=== PATIENT | female | born 1995 | race American Indian/Alaskan Native ===

== ENCOUNTER 2016-10-28 16:08 | Emergency (ER) | payer OTHER ==
[2016-10-28 16:54] LABS: Basophils % (Auto) 0.3 % (0.0-1.8); Hematocrit 42.4 % (30.3-42.9); Hemoglobin 13.7 gm/dl (10.1-14.3); Mean Corpuscular HGB Conc 32 % (30-34); Mean Corpuscular Hemoglobin 28 pg (28-32); Mean Corpuscular Volume 85 fl (79-97); Platelet Count 236 K/mm3 (140-440); Red Blood Count 4.98 M/mm3 (3.65-5.03); Red Cell Distribution Width 12.5 % (13.2-15.2); White Blood Count 7.6 K/mm3 (4.5-11.0)
[2016-10-28 17:02] LABS: Bacteria,Urine 1+ /HPF (Negative); Bilirubin,Urine NEG (Negative); Blood,Urine NEG (Negative); Ketones,Urine 80 mg/dL (Negative); Leukocyte Esterase,Urine NEG (Negative); Mucus,Urine 3+ /HPF; Nitrite,Urine NEG (Negative); Urobilinogen,Urine < 2.0 mg/dL (<2.0)
[2016-10-28 17:06] LABS: Anion Gap 25 mmol/L; BUN/Creatinine Ratio 17.14; Blood Urea Nitrogen 12 mg/dL (7-17); Calcium 9.1 mg/dL (8.4-10.2); Carbon Dioxide 19 mmol/L (22-30); Chloride 99.5 mmol/L (98-107); Glucose 106 mg/dL (65-100); Potassium 3.8 mmol/L (3.6-5.0); Sodium 140 mmol/L (137-145)
[2016-10-28] MEDS ORDERED: ZOFRAN ODT ONE (20:03)
[2016-10-28] MEDS ORDERED: ZOFRAN ODT PO ONE (20:08)
[2016-10-29 00:24] LABS: Urine Drugs of Abuse Note Disclamer
[2016-10-29 01:20] LABS: Albumin 4.7 g/dL (3.9-5); Albumin/Globulin Ratio 1.6 %; Bilirubin,Direct 0.4 mg/dL (0-0.2); Bilirubin,Total 2.4 mg/dL (0.1-1.2); Total Protein 7.6 g/dL (6.3-8.2)
[2016-10-29] MEDS ORDERED: D5NS 1,000 ML IV SCH (02:00)
--- NOTE | 2016-10-29 02:25 | Emergency Department Report ---
ED N/V/D HPI - General Chief complaint: Nausea/Vomiting/Diarrhea Stated complaint: PASSED OUT,VOMITING Time Seen by Provider: 10/29/16 00:19 Source: patient Mode of arrival: Ambulatory Limitations: No Limitations - History of Present Illness Initial comments: 21-year-old female with a past medical history presents to Hospital complaints of nausea, vomiting, and diarrhea. Patient states she ate seafood and steak at a restaurant last night. At 4:30 this morning she developed nausea, vomiting and by mouth intolerance to multiple episodes of diarrhea. Patient had a syncopal episode after multiple episodes of vomiting and diarrhea. Patient presented to the ER hyperventilating with paresthesias to bilateral hands. - Related Data Previous Rx's Medication Instructions Recorded Last Taken Type Loperamide [Imodium] 2 mg PO Q2HR PRN #20 capsule 10/29/16 Unknown Rx Ondansetron [Zofran Odt] 4 mg PO Q8HR PRN #30 tab.rapdis 10/29/16 Unknown Rx Allergies Allergy/AdvReac Type Severity Reaction Status Date / Time No Known Allergies Allergy Unverified 10/28/16 16:09 ED Review of Systems ROS: Stated complaint: PASSED OUT,VOMITING Other details as noted in HPI Comment: All other systems reviewed and negative Other: Constitutional: No fevers chills Eyes: No eye pain visual changes ENT: No ear pain or throat pain Neck: Denies pain Respiratory: Denies cough wheezing shortness of breath Cardiovascular: Denies chest pain, palpitations GI: as per hpi : Denies dysuria, urinary frequency, or urgency Musculoskeletal: Denies back pain, joint swelling Skin: Denies rash, lesions, erythema Neurologic: Denies headache, numbness, weakness Psychiatric: Denies suicidal ideation, hallucinations ED Past Medical Hx - Past Medical History Previous Medical History?: No - Surgical History Past Surgical History?: No - Social History Smoking Status: Current Some Day Smoker Substance Use Type: Alcohol - Medications Home Medications: Home Medications Medication Instructions Recorded Confirmed Last Taken Type Loperamide [Imodium] 2 mg PO Q2HR PRN #20 capsule 10/29/16 Unknown Rx Ondansetron [Zofran Odt] 4 mg PO Q8HR PRN #30 tab.rapdis 10/29/16 Unknown Rx ED Physical Exam - General Limitations: No Limitations - Other Other exam information: General: No limitations, patient is alert in no acute distress Head exam: Atraumatic, normocephalic Eyes exam: Normal appearance, pupils equal reactive to light, extraocular movements intact ENT: Moist mucous membrane, normal oropharynx Neck exam: Normal inspection, full range of motion, no meningismus nontender Respiratory exam: Clear to auscultation bilateral, no wheezes, rales, crackles Cardiovascular: Normal rate and rhythm, normal heart sounds Abdomen: Soft, nondistended, and nontender, with normal bowel sounds, no rebound, or guarding Extremity: Full range of motion normal inspection no deformity Back: Normal Inspection, full range of motion, no tenderness Neurologic: Alert, oriented x3, cranial nerves intact, no motor or sensory deficit Psychiatric: normal affect, normal mood Skin: Warm, dry, intact ED Course Vital Signs 10/28/16 10/28/16 10/29/16 16:24 22:41 00:11 Temperature 97.4 F L 99.4 F 99.0 F Pulse Rate 63 67 69 Respiratory 26 H 18 18 Rate Blood Pressure 114/65 125/88 Blood Pressure 113/61 [Right] O2 Sat by Pulse 98 100 99 Oximetry - Reevaluation(s) Reevaluation #1: 10/29/16 02:31 Patient's symptoms improved after receiving Zofran prior to my evaluation. Patient feels even better after receiving 1 L of D5 normal saline. ED Medical Decision Making - Lab Data Result diagrams: 10/28/16 16:38 10/28/16 16:38 - Medical Decision Making Patient's lab work is normal dictation of elevated total bili, and direct bili, and indirect bilirubin. I suspect this is secondary to hemolysis is blood work was added on to previous blood work collected at 4 PM. I explained this to patient and she does not have any right upper quadrant pain. She declined repeat at this time and will follow-up. Patient was treated symptomatically for acute gastroenteritis. - Differential Diagnosis age, appendicitis, diverticulitis, biliary colic, food poison Critical Care Time: No Critical care attestation.: If time is entered above; I have spent that time in minutes in the direct care of this critically ill patient, excluding procedure time. ED Disposition Clinical Impression: Acute gastroenteritis Disposition: DISCHARGED TO HOME OR SELFCARE Is pt being admited?: No Does the pt Need Aspirin: No Condition: Stable Instructions: Food Poisoning (ED) Additional Instructions: Take the medication is needed. Return if symptoms worsen. Your doctor to doctor provided Prescriptions: Loperamide [Imodium] 2 mg PO Q2HR PRN #20 capsule PRN Reason: Diarrhea Ondansetron [Zofran Odt] 4 mg PO Q8HR PRN #30 tab.rapdis PRN Reason: Nausea And Vomiting Referrals: MARIE VARGAS MD [Staff Physician] - 3-5 Days Forms: Work/School Release Form(ED) Time of Disposition: 02:35
[2016-10-29 02:50] VITALS: BP 123/77
== END 2016-10-29 02:51 | disposition home or self-care (01) ==
LOC: ED 16:08
DX: K52.9 Noninfective gastroenteritis and colitis, unspecified (principal); F17.200 Nicotine dependence, unspecified, uncomplicated
CPT/HCPCS: 36415; 80048; 80074; 80307; 81001; 81025; 82962; 83690; 85025; 93005; 93010; 96360; 99284; J7042; Q0162

== ENCOUNTER 2016-10-30 02:13 | Emergency (ER) | payer OTHER ==
[2016-10-30 02:54] LABS: Mean Corpuscular HGB Conc 34 % (30-34); Mean Corpuscular Hemoglobin 28 pg (28-32); Mean Corpuscular Volume 83 fl (79-97); Platelet Count 172 K/mm3 (140-440); Red Blood Count 4.71 M/mm3 (3.65-5.03); Red Cell Distribution Width 12.4 % (13.2-15.2); White Blood Count 7.3 K/mm3 (4.5-11.0)
[2016-10-30 03:12] LABS: Anion Gap 25 mmol/L; Blood Urea Nitrogen 11 mg/dL (7-17); Calcium 8.6 mg/dL (8.4-10.2); Carbon Dioxide 15 mmol/L (22-30); Chloride 98.9 mmol/L (98-107); Glucose 98 mg/dL (65-100); Sodium 136 mmol/L (137-145)
[2016-10-30] MEDS ORDERED: ZOFRAN ONE (03:26)
[2016-10-30 03:32] LABS: Basophils % (Manual) 0 % (0.0-1.8); Blastocytes % (Manual) 0 %; Eosinophils % (Manual) 0 % (0.0-4.3)
[2016-10-30] MEDS ORDERED: ZOFRAN IV ONE (03:32)
[2016-10-30 03:33] LABS: Anisocytosis 1+; Diff Status Complete; Hypochromasia 1+
[2016-10-30] MEDS ORDERED: REGLAN ONE (05:25)
[2016-10-30] MEDS ORDERED: REGLAN IV ONE (06:08)
[2016-10-30] MEDS ORDERED: K-DUR PO ONE (10:30)
--- NOTE | 2016-10-30 10:31 | Emergency Department Report ---
ED General Adult HPI - General Chief complaint: Nausea/Vomiting/Diarrhea Stated complaint: F/U POSS FOOD POISONING Time Seen by Provider: 10/30/16 10:27 Source: patient, EMS (ems notes not available at time of chart dictation), RN notes reviewed, old records reviewed Mode of arrival: Wheelchair Limitations: No Limitations - History of Present Illness Initial comments: This is a 21-year-old female. She is previously unknown to me. Does not have a primary care doctor. No history of abdominal surgeries. Patient presents to the ER with epigastric abdominal pain, intractable nausea and vomiting. To me she denies diarrhea. Patient reports recently consuming shrimp 3 days ago. Patient was seen yesterday, simply diagnosed with food poisoning. The patient's urinalysis demonstrated positive marijuana. The patient indicates that she sporadically consumes marijuana. There is no hematemesis, there is no bright red blood per rectum. Patient denies irritative and obstructive urinary symptoms. There is no vaginal discharge or vaginal discomfort. She is a homicidal suicidal. She reports that she feels somewhat dizzy, lightheaded. Symptoms have been constant since she has been in the ER the second time, they decrease with nausea medication. -: Gradual Location: abdomen Quality: aching Improves with: medication, rest Worsens with: eating Associated Symptoms: nausea/vomiting, weakness - Related Data Previous Rx's Medication Instructions Recorded Last Taken Type Loperamide [Imodium] 2 mg PO Q2HR PRN #20 capsule 10/29/16 Unknown Rx Ondansetron [Zofran Odt] 4 mg PO Q8HR PRN #30 tab.rapdis 10/29/16 Unknown Rx Dicyclomine [Bentyl] 10 mg PO QID PRN #20 capsule 10/30/16 Unknown Rx Potassium Chloride [Klor-Con] 20 meq PO QDAY #7 10/30/16 Unknown Rx Promethazine [Phenergan SUPPOS] 50 mg VT Q6H PRN #15 supp.rect 10/30/16 Unknown Rx Allergies Allergy/AdvReac Type Severity Reaction Status Date / Time No Known Allergies Allergy Verified 10/30/16 02:28 ED Review of Systems ROS: Stated complaint: F/U POSS FOOD POISONING Other details as noted in HPI Constitutional: malaise Eyes: denies: vision change ENT: denies: epistaxis Respiratory: denies: cough Cardiovascular: denies: chest pain Gastrointestinal: abdominal pain, nausea, vomiting Genitourinary: denies: urgency, dysuria Musculoskeletal: denies: back pain Skin: denies: lesions Neurological: weakness Psychiatric: anxiety. denies: homicidal thoughts, suicidal thoughts ED Past Medical Hx - Past Medical History Previous Medical History?: No - Surgical History Past Surgical History?: Yes Additional Surgical History: tonsil - Social History Smoking Status: Current Some Day Smoker Substance Use Type: Alcohol - Medications Home Medications: Home Medications Medication Instructions Recorded Confirmed Last Taken Type Loperamide [Imodium] 2 mg PO Q2HR PRN #20 capsule 10/29/16 Unknown Rx Ondansetron [Zofran Odt] 4 mg PO Q8HR PRN #30 tab.rapdis 10/29/16 Unknown Rx Dicyclomine [Bentyl] 10 mg PO QID PRN #20 capsule 10/30/16 Unknown Rx Potassium Chloride [Klor-Con] 20 meq PO QDAY #7 10/30/16 Unknown Rx Promethazine [Phenergan SUPPOS] 50 mg VT Q6H PRN #15 supp.rect 10/30/16 Unknown Rx ED Physical Exam - General Limitations: No Limitations General appearance: alert, in no apparent distress - Head Head exam: Present: atraumatic, normocephalic - Eye Eye exam: Present: normal appearance, EOMI. Absent: nystagmus - ENT ENT exam: Present: normal exam, normal orophraynx, mucous membranes moist, normal external ear exam - Neck Neck exam: Present: normal inspection, full ROM. Absent: tenderness, meningismus - Respiratory Respiratory exam: Present: normal lung sounds bilaterally. Absent: respiratory distress, wheezes, rales, rhonchi, stridor, chest wall tenderness - Cardiovascular Cardiovascular Exam: Present: regular rate, normal rhythm, normal heart sounds. Absent: bradycardia, tachycardia, irregular rhythm, systolic murmur, diastolic murmur, rubs, gallop - GI/Abdominal GI/Abdominal exam: Present: soft, tenderness (there is minimal epigastric tenderness. There is no rebound, guarding or peritoneal signs.), normal bowel sounds. Absent: distended, guarding, rebound, rigid, pulsatile mass - Extremities Exam Extremities exam: Present: normal inspection, full ROM, normal capillary refill. Absent: tenderness, pedal edema, joint swelling, calf tenderness - Back Exam Back exam: Present: normal inspection, full ROM. Absent: tenderness, CVA tenderness (R), CVA tenderness (L), muscle spasm, paraspinal tenderness, vertebral tenderness - Neurological Exam Neurological exam: Present: alert, oriented X3, normal gait, other (Extraocular movements intact. Tongue midline. No facial droop. Facial sensation intact to light touch in the V1, V2, V3 distribution bilaterally. 5 and 5 strength in 4 extremities.. Sensation is intact to light touch in 4 extremities.). Absent : motor sensory deficit - Psychiatric Psychiatric exam: Present: normal affect, normal mood - Skin Skin exam: Present: warm, dry, intact, normal color. Absent: rash ED Course Vital Signs 10/30/16 10/30/16 10/30/16 02:18 06:43 06:51 Temperature 99.5 F Pulse Rate 80 Respiratory 22 Rate Blood Pressure 149/107 116/72 O2 Sat by Pulse 98 99 98 Oximetry 10/30/16 10/30/16 10/30/16 07:00 07:11 07:21 Temperature Pulse Rate Respiratory Rate Blood Pressure 104/71 104/71 104/71 O2 Sat by Pulse 97 97 98 Oximetry 10/30/16 10/30/16 10/30/16 07:30 07:41 07:51 Temperature Pulse Rate Respiratory Rate Blood Pressure 100/61 100/61 100/61 O2 Sat by Pulse 97 97 98 Oximetry 10/30/16 10/30/16 10/30/16 08:01 08:11 08:21 Temperature Pulse Rate Respiratory Rate Blood Pressure 98/71 98/71 98/71 O2 Sat by Pulse 98 99 98 Oximetry 10/30/16 10/30/16 10/30/16 08:30 08:41 08:51 Temperature Pulse Rate Respiratory Rate Blood Pressure 110/72 110/72 110/72 O2 Sat by Pulse 99 98 98 Oximetry 10/30/16 10/30/16 10/30/16 09:00 09:11 09:21 Temperature Pulse Rate Respiratory Rate Blood Pressure 111/72 111/72 111/72 O2 Sat by Pulse 99 99 100 Oximetry 10/30/16 10/30/16 10/30/16 09:30 09:41 09:51 Temperature Pulse Rate Respiratory Rate Blood Pressure 89/52 89/52 89/52 O2 Sat by Pulse 98 99 95 Oximetry 10/30/16 10/30/16 10:00 10:11 Temperature Pulse Rate Respiratory Rate Blood Pressure 90/58 90/58 O2 Sat by Pulse 99 100 Oximetry - Reevaluation(s) Reevaluation #1: 10/30/16 12:32 Differential diagnosis: Enteritis, food poisoning, cyclic vomiting syndrome, narcotic bowel syndrome, cannabinoid hyperemesis syndrome, dehydration Assessment and plan: This is a 21-year-old female with nausea and vomiting, no reported diarrhea, objective indication of dehydration. Admits to recreationally consuming marijuana. Highly suspect cannabinoid hyperemesis syndrome. Had some abnormalities recently with total bilirubin and direct bilirubin, which have essentially resolved. A CT scan of the abdomen and pelvis with IV contrast showed no acute surgical disease. Appendix was specifically noted to be within normal limits. There is also no right lower quadrant pain. Patient reports currently being on her menstruation, urinalysis is not consistent with UTI, she endorses no irritative or obstructive urinary symptoms. Patient felt much improved after IV fluids, pain medication, nausea medication. She will be discharged with pain medication, nausea medication, instructions to discontinue consumption of marijuana. Reevaluation #2: 10/30/16 12:37 Mild metabolic acidosis is appreciated, this is not consistent with diabetic ketoacidosis. Most likely secondary to nausea and vomiting, patient also noted to have ketones in urine, Minimally hypotensive. This resolved with IV fluids. Given clinical improvement, ability to tolerate liquid feeds, I don't see a reason to repeat basic metabolic panel. clinically, I think that the most likely explanation for the patient's mild metabolic acidosis is loss of bicarbonate is Nausea and vomiting, secondary to her underlying GI illness. 10/30/16 12:40 ED Medical Decision Making - Lab Data Result diagrams: 10/30/16 02:42 10/30/16 02:42 Vital Signs 10/30/16 10/30/16 10/30/16 02:18 06:43 06:51 Temperature 99.5 F Pulse Rate 80 Respiratory 22 Rate Blood Pressure 149/107 116/72 O2 Sat by Pulse 98 99 98 Oximetry 10/30/16 10/30/16 10/30/16 07:00 07:11 07:21 Temperature Pulse Rate Respiratory Rate Blood Pressure 104/71 104/71 104/71 O2 Sat by Pulse 97 97 98 Oximetry 10/30/16 07:30 Temperature Pulse Rate Respiratory Rate Blood Pressure 100/61 O2 Sat by Pulse 97 Oximetry Labs 10/30/16 10/30/16 10/30/16 02:42 02:42 10:38 WBC 7.3 RBC 4.71 Hgb 13.0 Hct 39.0 MCV 83 MCH 28 MCHC 34 RDW 12.4 L Plt Count 172 Rains % (Auto) Seed Potato Cutter Add Manual Diff Complete Total Counted 100 Seg Neuts % (Manual) 90.0 H Band Neutrophils % 1.0 Lymphocytes % (Manual) 4.0 L Reactive Lymphs % (Man) 0 Monocytes % (Manual) 5.0 Eosinophils % (Manual) 0 Basophils % (Manual) 0 Metamyelocytes % 0 Myelocytes % 0 Promyelocytes % 0 Blast Cells % 0 Nucleated RBC % Not Reportable Seg Neutrophils # Man 6.6 Band Neutrophils # 0.1 Lymphocytes # (Manual) 0.3 L Abs React Lymphs (Man) 0.0 Monocytes # (Manual) 0.4 Eosinophils # (Manual) 0.0 Basophils # (Manual) 0.0 Metamyelocytes # 0.0 Myelocytes # 0.0 Promyelocytes # 0.0 Blast Cells # 0.0 WBC Morphology Not Reportable Hypersegmented Neuts Not Reportable Hyposegmented Neuts Not Reportable Hypogranular Neuts Not Reportable Smudge Cells Not Reportable Toxic Granulation Not Reportable Toxic Vacuolation Not Reportable Dohle Bodies Not Reportable Pelger-Huet Anomaly Not Reportable Valerie Rods Not Reportable Platelet Estimate Appears normal Clumped Platelets Not Reportable Plt Clumps, EDTA Not Reportable Large Platelets Not Reportable Giant Platelets Not Reportable Platelet Satelliting Not Reportable Plt Morphology Comment Not Reportable RBC Morphology Not Reportable Dimorphic RBCs Not Reportable Polychromasia Not Reportable Hypochromasia 1+ Poikilocytosis Not Reportable Anisocytosis 1+ Microcytosis Not Reportable Macrocytosis Not Reportable Spherocytes Not Reportable Pappenheimer Bodies Not Reportable Sickle Cells Not Reportable Target Cells Not Reportable Tear Drop Cells Not Reportable Ovalocytes Not Reportable Helmet Cells Not Reportable [place] Bodies Not Reportable Bronte Rings Not Reportable Triston Cells Not Reportable Bite Cells Not Reportable Crenated Cell Not Reportable Elliptocytes Not Reportable Acanthocytes (Spur) Not Reportable Rouleaux Not Reportable Hemoglobin C Crystals Not Reportable Schistocytes Not Reportable Malaria parasites Not Reportable Santosh Bodies Not Reportable Hem Pathologist Commnt No Sodium 136 L Potassium 3.0 L D Chloride 98.9 Carbon Dioxide 15 L Anion Gap 25 BUN 11 Creatinine 1.0 Estimated GFR > 60 BUN/Creatinine Ratio 11.00 Glucose 98 Calcium 8.6 Magnesium 1.9 Total Bilirubin 1.3 H Direct Bilirubin 0.3 H Indirect Bilirubin 1.0 AST 21 ALT 14 Alkaline Phosphatase 36 Total Protein 6.6 Albumin 3.8 L Albumin/Globulin Ratio 1.4 Lipase 29 HCG, Quant Urine Color Urine Turbidity Urine pH Ur Specific [place] Urine Protein Urine Glucose (UA) Urine Ketones Urine Blood Urine Nitrite Urine Bilirubin Urine Urobilinogen Ur Leukocyte Esterase Urine WBC (Auto) Urine RBC (Auto) U Epithel Cells (Auto) Urine Mucus 10/30/16 10/30/16 10:38 Unknown WBC RBC Hgb Hct MCV MCH MCHC RDW Plt Count Rains % (Auto) Add Manual Diff Total Counted Seg Neuts % (Manual) Band Neutrophils % Lymphocytes % (Manual) Reactive Lymphs % (Man) Monocytes % (Manual) Eosinophils % (Manual) Basophils % (Manual) Metamyelocytes % Myelocytes % Promyelocytes % Blast Cells % Nucleated RBC % Seg Neutrophils # Man Band Neutrophils # Lymphocytes # (Manual) Abs React Lymphs (Man) Monocytes # (Manual) Eosinophils # (Manual) Basophils # (Manual) Metamyelocytes # Myelocytes # Promyelocytes # Blast Cells # WBC Morphology Hypersegmented Neuts Hyposegmented Neuts Hypogranular Neuts Smudge Cells Toxic Granulation Toxic Vacuolation Dohle Bodies Pelger-Huet Anomaly Valerie Rods Platelet Estimate Clumped Platelets Plt Clumps, EDTA Large Platelets Giant Platelets Platelet Satelliting Plt Morphology Comment RBC Morphology Dimorphic RBCs Polychromasia Hypochromasia Poikilocytosis Anisocytosis Microcytosis Macrocytosis Spherocytes Pappenheimer Bodies Sickle Cells Target Cells Tear Drop Cells Ovalocytes Helmet Cells [place] Bodies Bronte Rings Triston Cells Bite Cells Crenated Cell Elliptocytes Acanthocytes (Spur) Rouleaux Hemoglobin C Crystals Schistocytes Malaria parasites Santosh Bodies Hem Pathologist Commnt Sodium Potassium Chloride Carbon Dioxide Anion Gap BUN Creatinine Estimated GFR BUN/Creatinine Ratio Glucose Calcium Magnesium Total Bilirubin Direct Bilirubin Indirect Bilirubin AST ALT Alkaline Phosphatase Total Protein Albumin Albumin/Globulin Ratio Lipase HCG, Quant < 2 Urine Color Yellow Urine Turbidity Slightly-cloudy Urine pH 6.0 Ur Specific [place] 1.025 Urine Protein 100 mg/dl Urine Glucose (UA) Neg Urine Ketones 80 Urine Blood Lg Urine Nitrite Neg Urine Bilirubin Neg Urine Urobilinogen < 2.0 Ur Leukocyte Esterase Sm Urine WBC (Auto) 34.0 H Urine RBC (Auto) > 182.0 U Epithel Cells (Auto) 6.0 Urine Mucus 3+ - EKG Data 10/30/16 12:45 Normal sinus, 68 bpm, prolonged QTC at 493 ms, not morphologically consistent with STEMI, normal axis. There is no prior EKG available for comparison. - Radiology Data Radiology results: report reviewed, image reviewed Noncontrast CAT scan of the abdomen and pelvis negative for acute disease. Critical care attestation.: If time is entered above; I have spent that time in minutes in the direct care of this critically ill patient, excluding procedure time. ED Disposition Clinical Impression: Nausea & vomiting Qualifiers: Vomiting Intractability: non-intractable Disposition: DISCHARGED TO HOME OR SELFCARE Is pt being admited?: No Does the pt Need Aspirin: No Condition: Stable Instructions: Acute Nausea and Vomiting (ED), Abdominal Pain (ED) Additional Instructions: Discontinue consumption of marijuana. Continue to take the Zofran medication that you were prescribed yesterday. Take the Bentyl medication as needed for pain. If you develops severe nausea, and have difficulty tolerating Zofran by mouth, take the Phenergan suppository as directed. Take potassium supplementation as directed. Follow-up with the primary care doctor or circuit court magistrate within the next week to [address] Jude Cooper is a local primary care doctor. Dr. Salazar is a local circuit court magistrate specialist. [facility] has a patient service hotline, which can be contacted anytime for close outpatient follow-up: [email or web address] ([phone]) Please return to the ER right away with new pain, worsened pain, migration of pain, fevers or chills, intractable nausea or vomiting, inability to tolerate liquid feeds. Prescriptions: Dicyclomine [Bentyl] 10 mg PO QID PRN #20 capsule PRN Reason: Pain Potassium Chloride [Klor-Con] 20 meq PO QDAY #7 Promethazine [Phenergan SUPPOS] 50 mg VT Q6H PRN #15 supp.rect PRN Reason: Nausea Referrals: PRIMARY CARE, [Primary Care Provider] - 3-5 Days JUDE COOPER MD [Staff Physician] - 3-5 Days FRANK SALAZAR MD [Staff Physician] - 3-5 Days Forms: Work/School Release Form(ED)
[2016-10-30] MEDS ORDERED: NACL 0.9% 1000 ML 1,000 ML ONE (10:42)
[2016-10-30] MEDS ORDERED: BENTYL IM ONE ×2 (10:42→10:59)
[2016-10-30] MEDS ORDERED: PEPCID IV ONE ×2 (10:43→10:59)
[2016-10-30 10:48] LABS: Bilirubin,Urine NEG (Negative); Blood,Urine LG (Negative); Ketones,Urine 80 mg/dL (Negative); Leukocyte Esterase,Urine SM (Negative); Mucus,Urine 3+ /HPF; Nitrite,Urine NEG (Negative); RBC,Urine > 182.0 /HPF (0.0-6.0); Urobilinogen,Urine < 2.0 mg/dL (<2.0)
[2016-10-30] MEDS ORDERED: NACL 0.9% 500 ML IV SCH (11:00)
[2016-10-30 11:11] LABS: Albumin 3.8 g/dL (3.9-5); Albumin/Globulin Ratio 1.4 %; Bilirubin,Direct 0.3 mg/dL (0-0.2); Bilirubin,Total 1.3 mg/dL (0.1-1.2); Magnesium 1.9 mg/dL (1.7-2.3); Total Protein 6.6 g/dL (6.3-8.2)
[2016-10-30] MEDS ORDERED: KCL 10MEQ/100ML 10 MEQ/100 ML BAG IV SCH (11:30)
--- NOTE | 2016-10-30 12:14 | Cat Scan Report ---
CT of the abdomen and pelvis with IV contrast. Findings: The liver, spleen, pancreas, and gallbladder are normal. The kidneys are normal in size and configuration with no evidence of mass or hydronephrosis. There no pelvic masses or abnormal fluid collections. The uterus and adnexal regions are unremarkable. The appendix measures 8 mm in diameter with no periappendiceal inflammatory changes. The enhancement of the appendiceal wall is within normal limits and the wall diameter is 2 mm thick which is also normal. There is no free air. Impression: Normal study.
[2016-10-30 13:22] VITALS: BP 90/58
== END 2016-10-30 13:22 | disposition home or self-care (01) ==
LOC: ED 02:13
DX: R11.2 Nausea with vomiting, unspecified (principal); R10.13 Epigastric pain; R53.1 Weakness; F17.200 Nicotine dependence, unspecified, uncomplicated; F12.10 Cannabis abuse, uncomplicated; Z90.89 Acquired absence of other organs; Z79.899 Other long term (current) drug therapy
CPT/HCPCS: 36415; 74177; 80048; 80074; 81001; 83690; 83735; 84702; 85007; 85025; 93005; 93010; 96361; 96372; 96374; 96375; 99285; J0500; J2405; J2765; J7030; Q9967